=== PATIENT | male | born 1990 | race Caucasian/White ===

== ENCOUNTER 2019-02-19 13:30 | Emergency (ER) | payer OTHER ==
[2019-02-19 14:02] VITALS: BP 144/88
--- NOTE | 2019-02-19 14:33 | UC ---
Throat Pain/Nasal Mervin HPI - HPI Summary HPI Summary: 28-year-old male who complains of a sore throat over the past couple of days, requesting a work note. - History of Current Complaint Chief Complaint: UCGeneralIllness Stated Complaint: VOMITING,ST,COUGH,SWEATY,RESTLESS Time Seen by Provider: 02/19/19 13:39 Hx Obtained From: Patient Onset/Duration: Gradual Onset Severity: Mild Pain Intensity: 3 Cough: None Associated Signs & Symptoms: Positive: Fever - Fever last evening. - Allergies/Home Medications Allergies/Adverse Reactions: Allergies Allergy/AdvReac Type Severity Reaction Status Date / Time Penicillins Allergy Severe Anaphylatic Verified 02/19/19 13:51 Shock Home Medications: Home Medications Buprenorp/Nalox 4-1 MG FILM [Suboxone 4 mg-1 mg Sl Film] 1 each SL BID 02/19/19 [History Confirmed 02/19/19] hydrOXYzine HCL TAB* [Atarax 25 MG TAB*] 25 mg PO QID PRN 02/19/19 [History Confirmed 02/19/19] PMH/Surg Hx/FS Hx/Imm Hx Previously Healthy: Yes Other History Of: Hepatitis C - Surgical History Surgical History: None - Family History Known Family History: Positive: Non-Contributory - Social History Alcohol Use: None Substance Use Type: Heroin Substance Use Comment - Amount & Last Used: IN [employer]OVERY FOR HEROIN ADDICTION Smoking Status (MU): Light Every Day Tobacco Smoker Type: Cigarettes, eCigarettes Amount Used/How Often: 5 CIGS A DAY AND SMOKE MICHELE DAILY Have You Smoked in the Last Year: Yes Review of Systems All Other Systems Reviewed And Are Negative: Yes Constitutional: Positive: Fever ENT: Positive: Sore Throat Gastrointestinal: Positive: Vomiting - Patient vomited 2 in the past 24 hours. He is taking liquids and retaining them. He ate normally yesterday. Is Patient Immunocompromised?: No Physical Exam Triage Information Reviewed: Yes Appearance: Well-Appearing, No Pain Distress, Well-Nourished Vital Signs: Initial Vital Signs Temp 97.5 F 02/19/19 13:53 Pulse 75 02/19/19 13:53 Resp 16 02/19/19 13:53 BP 144/88 02/19/19 13:53 Pulse Ox 98 02/19/19 13:53 Vital Signs Reviewed: Yes Eyes: Positive: Conjunctiva Clear ENT: Positive: Hearing grossly normal, Pharyngeal erythema, TMs normal, Tonsillar swelling - Minimal tonsillar swelling, Uvula midline. Negative: Tonsillar exudate, Trismus, Muffled voice, Hoarse voice Neck: Positive: Supple, Nontender, No Lymphadenopathy Respiratory: Positive: Lungs clear, Normal breath sounds, No respiratory distress, No accessory muscle use Cardiovascular: Positive: RRR, No Murmur, Pulses Normal, Brisk Capillary Refill Abdomen Description: Positive: Nontender, No Organomegaly, Soft. Negative: CVA Tenderness (R), CVA Tenderness (L), Distended, Guarding, Hepatomegaly, McBurney' s Point Tenderness, Splenomegaly Bowel Sounds: Positive: Present Musculoskeletal: Positive: Strength Intact, ROM Intact Neurological: Positive: Alert, Muscle Tone Normal Psychological: Positive: Normal Response To Family Skin Exam: Normal Throat Pain/Nasal Course/Dx - Course Course Of Treatment: Rapid strep test is negative, patient basically needed a note to return to work tomorrow. He has been off work yesterday and today. - Differential Dx/Diagnosis Provider Diagnosis: Pharyngitis Discharge - Sign-Out/Discharge Documenting (check all that apply): Patient Departure All imaging exams completed and their final reports reviewed: No Studies - Discharge Plan Condition: Good Disposition: HOME Patient Education Materials: Pharyngitis (ED) Forms: *Work Release Referrals: No Primary Care Phys,NOPCP [Primary Care Provider] - Care [facility] [Outside] Additional Instructions: Increase fluids, [facility] if you have any worsening symptoms over the next 4-5 days or if no improvement. - Billing Disposition and Condition Condition: GOOD Disposition: Home
== END 2019-02-19 14:42 | disposition home or self-care (01) ==
LOC: MERGE 13:30 → UCCORT 13:30
DX: J02.9 Acute pharyngitis, unspecified (principal); Z88.0 Allergy status to penicillin; F17.290 Nicotine dependence, other tobacco product, uncomplicated
CPT/HCPCS: 87651; 99201; G0463